=== PATIENT | female | born 1990 | race Hispanic/Latino ===

== ENCOUNTER 2021-05-07 16:53 | Emergency (ER) | payer OTHER ==
[~2021-05-07] VITALS: Ht 160 cm; Wt 72.6 kg
[2021-05-07 16:54] VITALS: BP 99/62
[2021-05-07] MEDS ORDERED: CEPH500B PO (17:22)
[2021-05-07] MEDS ORDERED: MUPI22OI2 TP (17:22)
[2021-05-07] MEDS ORDERED: NEOMY SULF/BACITRA/POLYMYXIN B 1 EACH PACKET TP ONE (17:25)
== END 2021-05-07 17:30 | disposition home or self-care (01) ==
LOC: EDH 16:53
DX: S61.306A Unspecified open wound of right little finger with damage to nail, initial encounter (principal); X58.XXXA Exposure to other specified factors, initial encounter; Y93.89 Activity, other specified; Y92.89 Other specified places as the place of occurrence of the external cause; Y99.8 Other external cause status